=== PATIENT | male | born 1975 | race Caucasian/White ===

== ENCOUNTER 2019-07-23 09:42 | Emergency (ER) | payer BC, OTHER ==
[~2019-07-23] VITALS: Ht 172.7 cm; Wt 97.5 kg
[~2019-07-23 09:42] MED LIST: BENTYL10 MG ORAL
[2019-07-23 09:44] VITALS: BP 133/88
[2019-07-23] MEDS ORDERED: PROZAC20 MG ORAL (09:48)
--- NOTE | 2019-07-23 09:50 | NUR ---
ED Nurse Note: Patient walked into ED c/o soreness, right upper quadrant abdominal pain, 3-4/10 for 7 days, non-radiating. Patient denies any nausea and vomiting, diarrhea. patient is alert awake x 4 ambulatory steady gait, breathing unlabored and even.
[2019-07-23 10:22] LABS: APPEARANCE,URINE CLEAR; BILIRUBIN, URINE NEGATIVE (NEGATIVE); COLOR,URINE PALE YELLOW; EOSINOPHILS % (AUTO) 4.1 % (0.0-3.0); GLUCOSE, URINE (UA) NEGATIVE (NEGATIVE); HEMATOCRIT 47.4 % (42.0-52.0); HEMOGLOBIN 16.7 G/DL (14.2-18.0); KETONES,URINE NEGATIVE (NEGATIVE); LEUKOCYTE ESTERASE ,URINE 1+ (NEGATIVE); LYMPHOCYTES % (AUTO) 23.5 % (20.0-45.0); MEAN CORPUSCULAR VOLUME 86 FL (80-99); MONOCYTES % (AUTO) 9.3 % (1.0-10.0); NEUTROPHILS % (AUTO) 62.1 % (45.0-75.0); NITRITE,URINE NEGATIVE (NEGATIVE); PH,URINE 8 (4.5-8.0); PLATELET COUNT 263 K/UL (150-450); PROTEIN,URINE NEGATIVE (NEGATIVE); RED BLOOD COUNT 5.51 M/UL (4.70-6.10); RED CELL DISTRIBUTION WIDTH 10.4 % (11.6-14.8); UROBILINOGEN,URINE NORMAL MG/DL (0.0-1.0); WHITE BLOOD COUNT 7.4 K/UL (4.8-10.8)
[2019-07-23 10:30] LABS: ANION GAP 7 mmol/L (5-15); BLOOD UREA NITROGEN 12 mg/dL (7-18); CALCIUM 9.1 MG/DL (8.5-10.1); CARBON DIOXIDE 29 MMOL/L (21-32); CHLORIDE 108 MMOL/L (98-107); POTASSIUM 4.1 MMOL/L (3.5-5.1); SODIUM 144 MMOL/L (136-145)
[2019-07-23 10:35] LABS: ALANINE AMINOTRANSFERASE 39 U/L (12-78); ALBUMIN 4.3 G/DL (3.4-5.0); ALBUMIN/GLOBULIN RATIO 1.5 (1.0-2.7); ALKALINE PHOSPHATASE 52 U/L (46-116); ASPARTATE AMINO TRANSFERASE 22 U/L (15-37); BILIRUBIN,TOTAL 1.1 MG/DL (0.2-1.0)
--- NOTE | 2019-07-23 10:38 | Emergency Room Report ---
History of Present Illness General Chief Complaint: Abdominal Pain Source: Patient Present Illness HPI Disclaimer: Please note that this report is being documented using [employer] technology. This can lead to erroneous entry secondary to incorrect interpretation by the dictating instrument. HPI: 44-year-old male with a history of fatty liver disease, psychiatric illness presents for evaluation of upper abdominal pain and fatigue. Symptoms have been present for several days, up to a week. He notes intermittent pain in the right upper quadrant, currently a 3/10. He describes it as an aching and is not associated with eating or drinking. He is able to eat and drink at his baseline. Denies vomiting, diarrhea, chest pain, shortness of breath, fevers. He does note fatigue. No known sick contacts. No have family history of biliary disease. He does have a history of fatty liver disease which he states is hereditary. Denies dysuria, hematuria. No history of intra- abdominal surgeries PMH: Fatty liver disease, psychiatric disease PSH: Orthopedic hand repair Allergies: Sulfa medications Social Hx: Denies drug or alcohol use Allergies: Coded Allergies: SULFA (SULFONAMIDE ANTIBIOTICS) (Unverified Allergy, Unknown, 03/25/15) Nursing Documentation-PMH Past Medical History: No History, Except For History Of Psychiatric Problem: Yes - psychosis, OCD, depression Review of Systems All Other Systems: negative except mentioned in HPI Physical Exam Vital Signs Date Time Temp Pulse Resp B/P (MAP) Pulse Ox O2 Delivery O2 Flow Rate FiO2 07/23/19 09:44 98.2 76 18 133/88 98 Room Air General: Awake and alert, no acute distress HEENT: NC/AT. EOMI. Cardiovascular: RRR. S1 and S2 normal. No murmur appreciated Resp: Normal work of breathing. No cough, wheezing or crackles appreciated Abdomen: Abdomen is soft, nondistended. There is tenderness palpation of the right upper quadrant in the epigastrium. Goff sign is positive. No rebound. No tenderness in the lower quadrants. Skin: Intact. No abrasions, laceration or rash over the exposed skin MSK: Normal tone and bulk. Moving all extremities. No obvious deformity. Neuro: Awake and alert. Mentating appropriately. Medical Decision Making Diagnostic Impression: Primary Impression: Biliary colic symptom ER Course 44-year-old male presents for evaluation of abdominal pain and fatigue. Differential includes was not limited to biliary colic, cholecystitis, choledocholithiasis, pancreatitis, gastritis, GERD. Will check labs, provide IV fluids, pain medication and obtain a right upper quadrant ultrasound. Most likely, this is biliary colic and he is overall well-appearing. If everything returns unremarkable he may be discharged home with outpatient follow-up Laboratory Tests Test 07/23/19 10:04 White Blood Count 7.4 K/UL (4.8-10.8) Red Blood Count 5.51 M/UL (4.70-6.10) Hemoglobin 16.7 G/DL (14.2-18.0) Hematocrit 47.4 % (42.0-52.0) Mean Corpuscular Volume 86 FL (80-99) Mean Corpuscular Hemoglobin 30.4 PG (27.0-31.0) Mean Corpuscular Hemoglobin Concent 35.3 G/DL (32.0-36.0) Red Cell Distribution Width 10.4 % (11.6-14.8) L Platelet Count 263 K/UL (150-450) Mean Platelet Volume 6.5 FL (6.5-10.1) Neutrophils (%) (Auto) 62.1 % (45.0-75.0) Lymphocytes (%) (Auto) 23.5 % (20.0-45.0) Monocytes (%) (Auto) 9.3 % (1.0-10.0) Eosinophils (%) (Auto) 4.1 % (0.0-3.0) H Basophils (%) (Auto) 1.0 % (0.0-2.0) Urine Color Pale yellow Urine Appearance Clear Urine pH 8 (4.5-8.0) Urine Specific [place] 1.005 (1.005-1.035) Urine Protein Negative (NEGATIVE) Urine Glucose (UA) Negative (NEGATIVE) Urine Ketones Negative (NEGATIVE) Urine Blood Negative (NEGATIVE) Urine Nitrite Negative (NEGATIVE) Urine Bilirubin Negative (NEGATIVE) Urine Urobilinogen Normal MG/DL (0.0-1.0) Urine Leukocyte Esterase 1+ (NEGATIVE) H Urine RBC 0 /HPF (0 - 0) Urine WBC 0-2 /HPF (0 - 0) Urine Squamous Epithelial Cells Occasional /LPF Urine Bacteria Occasional /HPF (NONE) Sodium Level 144 MMOL/L (136-145) Potassium Level 4.1 MMOL/L (3.5-5.1) Chloride Level 108 MMOL/L (98-107) H Carbon Dioxide Level 29 MMOL/L (21-32) Anion Gap 7 mmol/L (5-15) Blood Urea Nitrogen 12 mg/dL (7-18) Creatinine 1.0 MG/DL (0.55-1.30) Estimate Glomerular Filtration Rate > 60 mL/min (>60) Glucose Level 100 MG/DL (74-106) Calcium Level 9.1 MG/DL (8.5-10.1) Total Bilirubin 1.1 MG/DL (0.2-1.0) H Direct Bilirubin 0.1 MG/DL (0.0-0.3) Aspartate Amino Transferase (AST) 22 U/L (15-37) Alanine Aminotransferase (ALT) 39 U/L (12-78) Alkaline Phosphatase 52 U/L (46-116) Total Protein 7.2 G/DL (6.4-8.2) Albumin 4.3 G/DL (3.4-5.0) Globulin 2.9 g/dL Albumin/Globulin Ratio 1.5 (1.0-2.7) Lipase 158 U/L (73-393) CT/MRI/US Diagnostic Results CT/MRI/US Diagnostic Results : Impression Gallbladder was contracted and the study was limited. No pericholecystic fluid , no gallbladder wall thickness, CBD within normal limits. No visible stones Reevaluation Time: 13:00 Last Vital Signs Date Time Temp Pulse Resp B/P (MAP) Pulse Ox O2 Delivery O2 Flow Rate FiO2 07/23/19 09:59 76 18 Room Air 07/23/19 09:44 98.2 133/88 (103) 98 Status: unchanged Reevaluation Impression Ultrasound shows no stones, no gallbladder disease, normal common bile duct of the study was limited due to a contracted gallbladder. Labs have returned largely within normal limits. The liver was somewhat heterogeneous consistent with the patient's history of fatty liver disease. Believe he experiencing biliary colic and being discharged home with pain control and further outpatient follow-up with his PMD. We discussed reasons to return to the emergency department. He understands and agrees with this treatment plan. Disposition: HOME, SELF-CARE Condition: Stable Nathanael Castellanos MD Jul 23, 2019 10:38
--- NOTE | 2019-07-23 10:43 | NUR ---
ED Nurse Note: explained patient regarding nothing by mouth, patient verbalized understanding.
[2019-07-23 10:57] LABS: BILIRUBIN,DIRECT 0.1 MG/DL (0.0-0.3)
--- NOTE | 2019-07-23 10:58 | NUR ---
ED Nurse Note: US By the bedside.
--- NOTE | 2019-07-23 12:11 | Diagnostic Imaging Report ---
Indication: Abdominal pain Technique: Alston-scale and duplex images of the upper abdomen were obtained Comparison: Findings: Gallbladder is contracted; patient is nonfasting. No definite stones. There is apparent wall thickening which is probably an artifact of nondistention Sonographic Goff's sign is negative. Common bile duct measures for mm in diameter. No intrahepatic biliary ductal dilatation. Liver demonstrates diffusely increased echogenicity, consistent with diffuse hepatocellular disease, most likely fatty change. Portal vein and hepatic veins are patent. Pancreas is unremarkable. Spleen is unremarkable. Left kidney measures cm in length. Right kidney measures 11.6 cm length. Both kidneys demonstrate normal echogenicity. There is no hydronephrosis. No focal abnormality . Non-aneurysmal abdominal aorta . Impression: Liver demonstrates diffusely increased echogenicity, consistent with diffuse hepatocellular disease, most likely fatty change. Suboptimal evaluation of the gallbladder; contracted due to nonfasting state. No gross abnormality. Negative for dilated bile ducts
[2019-07-23 12:15] VITALS: BP 128/82
--- NOTE | 2019-07-23 12:16 | NUR ---
ER DISCHARGE NOTE: Patient is cleared to be discharged per ERMD DR TERRELL, pt is aox4, on room air, with stable vital signs. pt was given dc and prescription instructions, pt was able to verbalize understanding, pt id band and iv site removed without complications. pt is able to ambulate with steady gait. pt took all belongings.
== END 2019-07-23 12:15 | disposition home or self-care (01) ==
LOC: EMR 11:10
DX: K80.50 Calculus of bile duct without cholangitis or cholecystitis without obstruction (principal); F32.9 Major depressive disorder, single episode, unspecified; F42.9 Obsessive-compulsive disorder, unspecified; Z88.2 Allergy status to sulfonamides; K76.0 Fatty (change of) liver, not elsewhere classified
CPT/HCPCS: 36415; 76700; 80053; 81003; 82248; 83690; 85025; 96360; 99284